=== PATIENT | female | born 1985 ===

== ENCOUNTER 2019-10-20 10:24 | Outpatient (CLI) | payer MEDICAID ==
--- NOTE | 2019-10-20 11:16 | MMO ---
Bilateral MAMMO Bilat Diag [facility]. CLINICAL HISTORY: Patient is 34 years old and is seen for diagnostic exam and lump or thickening in the left breast at 3 o'clock. The patient has the following family history of breast cancer: paternal aunt, malignant (generic). The patient has no personal history of cancer. VIEWS: The views performed were: bilateral craniocaudal with tomosynthesis; bilateral mediolateral oblique with tomosynthesis; and bilateral mediolateral with tomosynthesis. FILMS COMPARED: The present examination has been compared to a prior imaging study performed at [facility] on 10/20/2019. This study has been interpreted with the assistance of computer-aided detection. MAMMOGRAM FINDINGS: There are scattered fibroglandular densities. There is a round mass measuring 12 millimeters with circumscribed margins seen in the left breast at 3 o'clock. Fibroadenoma In the right breast, there are no suspicious masses, calcifications or areas of architectural distortion. IMPRESSION: MASS IN THE LEFT BREAST IS PROBABLY BENIGN. FOLLOW-UP IN 6 MONTHS IS RECOMMENDED. 6 MONTH FOLLOW UP ULTRASOUND ONLY THE RESULTS OF THIS EXAM WERE SENT TO THE PATIENT. ACR BI-RADS Category 3 - Probably benign finding - short interval follow-up suggested. [facility] will notify the patient of the need for additional imaging services. MAMMOGRAPHY NOTE: 1. A negative mammogram report should not delay a biopsy if a dominant of clinically suspicious mass is present. 2. Approximately 10% to 15% of breast cancers are not detected by mammography. 3. Adenosis and dense breasts may obscure an underlying neoplasm. Reported by: MERRICK GREY MD Electonically Signed: [id number]
--- NOTE | 2019-10-20 12:30 | ULT ---
LEFT BREAST ULTRASOUND: HISTORY: The patient presents with a palpable abnormality at 3 o'clock in the left breast. FINDINGS: There is a 0.9 x 1.2 x 1.3 cm diameter solid slightly hypoechoic circumscribed mass at 3 o'clock acco unting for the palpable finding. This has a typical appearance for a benign fibroadenoma. IMPRESSION: Circumscribed solid mass 3 o'clock position left breast accounting for the palpable finding. Findings were discussed with the patient in regard to followup with either followup short-term survei llance versus ultrasound-guided biopsy. The patient elects 6-month short-term surveillance for 2 yea rs. BIRADS category 3, probably benign findings. Six-month followup ultrasound only is recommended. This was discussed with the patient who is in agreement. CODE CR
== END 2019-10-20 10:25 | disposition home or self-care (01) ==
LOC: BICMAMMO 10:24
PROVIDERS: ATTEND Nurse Practitioner Women's Health
DX: N63.21 Unspecified lump in the left breast, upper outer quadrant (principal)
CPT/HCPCS: 77066; G0279